=== PATIENT | male | born 2000 | race Caucasian/White ===

== ENCOUNTER → 2022-11-11 | Outpatient (CLI) | payer OTHER, SELFPAY ==
--- NOTE | 2022-11-11 13:06 | ECHOD_ITS ---
Reason For Study: HYPERTENSION Procedure This was a 2D Doppler, Color Flow transthoracic echocardiogram. Exam performed in department. Left Ventricle Normal LV size. Left ventricular systolic function is normal. The estimated ejection fraction is 55 %. No regional wall motion abnormalities noted. Right Ventricle Normal RV size. Normal systolic function. Atria Normal left atrium. Normal right atrium. Mitral Valve Normal mitral valve. Tricuspid Valve Normal tricuspid valve. Aortic Valve Trisinus/trileaflet aortic valve. Pulmonic Valve Normal pulmonic valve. Great Vessels Normal aortic root. The pulmonary artery is normal size. Inferior vena cava collapse with respiration. Pericardium/Pleural No pericardial effusion. MMode/2D Measurements & Calculations LVIDd: 4.7 cm IVSd: 0.79 cm LVOT diam: 2.1 cm LVIDs: 3.4 cm LVPWd: 0.74 cm LVOT area: 3.6 cm2 RVDd: 3.6 cm FS: 26.7 % Ao root diam: 2.8 cm LAV(MOD-bp): 32.7 ml LVAd ap4: 27.1 cm2 LAV(MOD-bp) Indexed: 14.6 ml/m2 LVLd ap4: 8.3 cm LAV(MOD-sp2): 37.2 ml EDV(MOD-sp4): 75.0 ml LAV(MOD-sp4): 27.2 ml EDV(sp4-el): 74.8 ml LVAs ap4: 15.9 cm2 LVLs ap4: 7.0 cm ESV(MOD-sp4): 30.1 ml ESV(sp4-el): 30.8 ml EF(MOD-sp4): 59.9 % EF(sp4-el): 58.8 % LVAd ap2: 34.5 cm2 SV(MOD-sp4): 44.9 ml SV(MOD-sp2): 63.4 ml LVLd ap2: 8.8 cm EDV(MOD-sp2): 111.5 ml EDV(sp2-el): 114.4 ml LVAs ap2: 19.9 cm2 LVLs ap2: 7.2 cm ESV(MOD-sp2): 48.2 ml ESV(sp2-el): 46.9 ml EF(MOD-sp2): 56.8 % SV(sp4-el): 44.0 ml LA dimension(2D): 3.3 cm LA A4 area: 13.0 cm2 RA A4 area: 15.0 cm2 Time Measurements MV dec time: 0.25 sec Doppler Measurements & Calculations MV E max mac: 93.3 cm/sec Lat Peak E' Mac: 20.9 cm/sec Med Peak E' Mac: 16.9 cm/sec MV A max mac: 56.0 cm/sec E/E' lat: 4.5 E/E' med: 5.5 MV E/A: 1.7 Ao V2 max: 126.0 cm/sec LV V1 max: 91.5 cm/sec MV dec slope: 368.0 cm/sec2 Ao max P.4 mmHg LV V1 max P.3 mmHg Ao V2 mean: 88.7 cm/sec LV V1 mean P.9 mmHg Ao mean P.6 mmHg LV V1 mean: 63.8 cm/sec Ao V2 VTI: 29.4 cm LV V1 VTI: 20.4 cm AV (velocity ratio): 0.69 BI(I,D): 2.5 cm2 BI(V,D): 2.6 cm2 SV(LVOT): 72.5 ml PA V2 max: 130.6 cm/sec PA max PG (full): 4.1 mmHg ECHO/Echo Complete Interpretation Summary Normal LV size. Left ventricular systolic function is normal. The estimated ejection fraction is 55 %. Structurally normal valves. Ordering Physician: Eber Persaud Referring Physician: Abhishek Horn MD Performed By: Oxana Tillman RDCS
[2022-11-11 14:31] LABS: Anion Gap 4 (5-15); BUN 13 mg/dL (7-18); BUN/Creat Ratio 12.6 RATIO (10-20); Calcium,Total 9.5 mg/dL (8.5-10.1); Chloride 102 mmol/L (98-107); Creatinine, Serum 1.03 mg/dL (0.70-1.30); EST Glomerular Filtration Rate 94 mL/min (>60); Est Glom Filt Rate - Afr Amer 114 mL/min (>60); Glucose 98 mg/dL (74-106); Potassium 4.4 mmol/L (3.5-5.1); Sodium Level 134 mmol/L (136-145)
[2022-11-30 10:07] LABS: ALDOSTERONE/RENIN RATIO <.0 (0.0-30.0); Aldosterone, Serum < 1.0 ng/dL (0.0-30.0); Renin, Plasma 22.128 ng/mL/hr (0.167-5.380)
== END | disposition home or self-care (01) ==
PROVIDERS: PCP Family Medicine; Referring Provider Internal Medicine Cardiovascular Disease; Visit Provider Internal Medicine Cardiovascular Disease
DX: I10 Essential (primary) hypertension (principal)
CPT/HCPCS: 36415; 80048; 82088; 84244; 93306

== ENCOUNTER → 2022-11-13 | Outpatient (CLI) | payer OTHER, SELFPAY ==
--- NOTE | 2022-11-13 14:34 | CT_ITS ---
STUDY: CTA ABDOMEN AND PELVIS WITH CONTRAST REASON FOR EXAM: Male, 22 years old. Hypertension RADIATION DOSAGE (If Supplied By Facility): CTDIvol = ( 21.53 ) mGy, DLP = ( 887.36 ) mGycm TECHNIQUE: Transaxial images were obtained from the dome of the diaphragm to the symphysis pubis without oral contrast. IV 100mL Isovue-[id number] was administered. Sagittal and coronal images were reconstructed. Individualized dose optimization techniques were used for this CT. COMPARISON: None. FINDINGS: The visualized lung bases are unremarkable. The visualized portions of the heart are within normal limits. Normal liver. Normal gallbladder and extrahepatic biliary system. Normal spleen. Normal pancreas. Normal bilateral adrenal glands. Normal right kidney. Normal left kidney. Normal visualized stomach. Normal small intestine. Normal colon. The appendix is visualized and appears normal. Normal abdominal aorta. Normal inferior vena cava. Normal retroperitoneum. Normal urinary bladder. Normal abdominal wall. Normal osseous structures. CT/CTA Abd/Pelvis W/WO Contrast IMPRESSION: Normal enhanced CT of the abdomen and pelvis. Electronically Signed: Amaury Carlson MD at 15:30 EDT ,
[2022-11-13 15:27] LABS: CREATININE FINGERSTICK 1.3 mg/dL (0.70-1.30); EGFR FINGERSTICK > 60.0000 mL/min (>60)
== END | disposition home or self-care (01) ==
LOC: CT 14:32
PROVIDERS: PCP Family Medicine; Referring Provider Internal Medicine Cardiovascular Disease; Visit Provider Internal Medicine Cardiovascular Disease
DX: I10 Essential (primary) hypertension (principal); R00.2 Palpitations; J45.909 Unspecified asthma, uncomplicated; Z72.0 Tobacco use
CPT/HCPCS: 74174; Q9967; A4216

== ENCOUNTER → 2023-03-22 | Outpatient (CLI) | payer OTHER, SELFPAY ==
[2023-03-22 10:39] LABS: Hematocrit 43.6 % (40-54); Hemoglobin 14.9 g/dL (13.0-16.5); Mean Corp Hgb Conc 34.2 g/dL (32-36); Mean Corpuscular Hgb 31.9 pg (27.0-32.0); Mean Corpuscular Volume 93.4 fL (80-94); Mean Platelet Vol. 9.6 fl (6.2-12.0); Platelet Count 263 K/mm3 (150-450); RBC Distribution Width CV 12.5 % (11.6-14.6); RBC Distribution Width SD 43.4 fl (35.1-43.9); Red Blood Count 4.67 M/mm3 (4.6-6.2); White Blood Count 5.9 K/mm3 (4.4-11.0)
[2023-03-22 11:18] LABS: Anion Gap 6 (5-15); BUN 9 mg/dL (7-18); BUN/Creat Ratio 8.3 RATIO (10-20); Calcium,Total 9.1 mg/dL (8.5-10.1); Chloride 100 mmol/L (98-107); Creatinine, Serum 1.08 mg/dL (0.70-1.30); EST Glomerular Filtration Rate 89 mL/min (>60); Est Glom Filt Rate - Afr Amer 108 mL/min (>60); Glucose 133 mg/dL (74-106); Potassium 3.9 mmol/L (3.5-5.1); Sodium Level 132 mmol/L (136-145)
== END | disposition home or self-care (01) ==
LOC: LAB 10:01
PROVIDERS: PCP Family Medicine; Referring Provider Nurse Practitioner Gerontology; Visit Provider Nurse Practitioner Gerontology
DX: I10 Essential (primary) hypertension (principal); R00.2 Palpitations; J45.909 Unspecified asthma, uncomplicated; Z72.0 Tobacco use
CPT/HCPCS: 36415; 80048; 85027